=== PATIENT | male | born 1955 | race Caucasian/White ===

== ENCOUNTER → 2020-08-12 | Outpatient (CLI) | payer OTHER ==
[~2020-08-12] MED LIST: ANDROGEL1.25 GM TOP; CARVEDILOL25 MG PO; ENTRESTO 97 MG1 EACH PO; HYDROCODON-ACE1 EAC7 PO; LIPITOR40 MG PO; METFORMIN HCL500 M3 PO; RELAFEN750 MG PO; SOMATULINE90 MG/0.3 SUBQ; SPIRONOLACTONE25 MG PO; TIMOLOL MALEATE5 M2 OPHTHALMIC; TRULICITY0.75 MG/0. SUBQ; TRUSOPT OCUMETE10 ML OPHTHALMIC; XALATAN2.5 ML OPHTHALMIC
== END ==
LOC: LAB 09:22
PROVIDERS: ATTEND Specialist
DX: Z01.812 Encounter for preprocedural laboratory examination (principal); Z20.828 Contact with and (suspected) exposure to other viral communicable diseases

== ENCOUNTER → 2020-08-19 | Outpatient (CLI) | payer OTHER, MEDICARE ==
[~2020-08-19] VITALS: Ht 182.9 cm; Wt 112.5 kg
--- NOTE | 2020-08-19 12:12 | P ---
[facility] [place] [address] PROCEDURE REPORT Name: VIANEY SOLIZ [id number] Admission: 08/19/20 Attend Phys: Hansel Sabillon Discharge: Date of : 51 Report #: [id number] THIS REPORT FOR: cc: Georgi De Souza MD, Rene P. MD McElhinney, Christian C. MD ~ DATE OF SERVICE: 08/19/2020 PROCEDURE PERFORMED: Colonoscopy with biopsies. HISTORY OF PRESENT ILLNESS: The patient is a 65-year-old male with a history of colon polyps, last colonoscopy 5 years ago, presents today for routine followup. Denies any symptoms. No family history of colon cancer. DESCRIPTION OF PROCEDURE: The risks and benefits of the procedure were explained to the patient, those risks including but not limited to bleeding, perforation and the risk of sedation. He understood these risks and gave informed consent. Sedation was given using propofol per anesthesia. Next, a digital rectal exam was initially performed, which was normal. Next, using a standard Olympus colonoscope, the scope was placed in the patient's anus and advanced under direct vision into the proximal ascending colon, there was a significant amount of looping. The overall prep was adequate. It was somewhat poor in areas. Multiple washings and aspirations were performed. I was able to view part of the cecum due to a liquid stool and inability to advance the scope any further than the proximal ascending colon. The ileocecal valve was normal. In the ascending colon, there was a 4 mm sessile polyp. This was removed with cold forceps. The transverse and descending colon were normal. Multiple diverticula were noted in the sigmoid colon. The rectal mucosa was normal. A few small areas were limited in visualization due to prep. On retroflexion, small nonbleeding internal hemorrhoids were noted. The scope was then withdrawn and the procedure terminated. The patient tolerated the procedure well. IMPRESSION: 1. Small colonic polyp. 2. Sigmoid diverticulosis. 3. Internal hemorrhoids. 4. Otherwise, normal colonoscopy; however, visualization was limited in a few areas due to fair prep. RECOMMENDATIONS: 1. Await biopsy results. 2. Repeat colonoscopy in [address] [address] PROCEDURE REPORT Name: VIANEY SOLIZ Room #: REG [facility].#: [id number] Admission: 08/19/20 Attend Phys: Hansel Sabillon Discharge: Date of : 51 Report #: [id number] Thank you for allowing me to participate in his care. <ELECTRONICALLY SIGNED> By: Hansel Pereira MD 08/19/20 1212 0945 1002 Hansel Pereira MD /nt
--- NOTE | 2020-08-21 16:06 | PATH ---
[facility] [place] [address] [address] PATHOLOGY RPT PROCEDURE Name: NISH SOLIZ Room #: REG [facility] M..#: [id number] Admission: 08/19/20 Date of : 51 Discharge: Report #: [id number] Path Case #: [id number] [facility] Accession Number: [id number] . 01 Material submitted: . colon - ASCENDING COLON POLYP. Modifiers: ascending . 01 Clinical history: . HISTORY OF POLYPS . 02 Diagnosis: Polyp, ascending colon polyp, endoscopic biopsy: - Tubular adenoma. - Negative for high grade dysplasia. . (IUV:mml; 08/21/2020) [facility] 08/21/2020 1354 Local . 02 Electronically signed: . Theresa Bautista MD, Pathologist NPI- [id number] . 01 Gross description: . Received in formalin labeled "Garrett, Nish, ascending colon polyp" is a fragment of mullen-brown soft tissue measuring 0.3 x 0.2 x 0.1 cm. The specimen is submitted entirely in A1. ([facility] 08/20/2020) [facility] 08/20/2020 1247 Local . 02 Pathologist provided ICD-10: D12.2 . 02 CPT . 898899 Specimen Comment: A courtesy copy of this report has been sent to [phone] Specimen Comment: Report sent to Performed at: [address], [place] [id number] MD Allen Woods MD Phone: [phone] Performed at: [address] [id number] MD Theresa Bautista MD Phone: [phone]
== END | disposition home or self-care (01) ==
LOC: GI 07:57
PROVIDERS: ATTEND Specialist
DX: Z12.11 Encounter for screening for malignant neoplasm of colon (principal); Z86.010 Personal history of colon polyps; D12.2 Benign neoplasm of ascending colon; K57.30 Diverticulosis of large intestine without perforation or abscess without bleeding; K64.8 Other hemorrhoids; E11.9 Type 2 diabetes mellitus without complications; H40.9 Unspecified glaucoma; I50.9 Heart failure, unspecified; G47.30 Sleep apnea, unspecified; E78.00 Pure hypercholesterolemia, unspecified; K21.9 Gastro-esophageal reflux disease without esophagitis; Z98.890 Other specified postprocedural states; Z79.899 Other long term (current) drug therapy; Z96.643 Presence of artificial hip joint, bilateral; Z87.891 Personal history of nicotine dependence; Z95.0 Presence of cardiac pacemaker; Z90.49 Acquired absence of other specified parts of digestive tract; Z98.52 Vasectomy status
CPT/HCPCS: 62110; 62900